=== PATIENT | female | born 1950 | race Caucasian/White ===

== ENCOUNTER 2025-04-22 06:28 | Day surgery (SDC) | payer MEDICARE, OTHER, SELFPAY ==
[2025-04-22] VITALS (14 sets, daily range): BP systolic 99–137; BP diastolic 56–70; BMI 32.0
[2025-04-22 07:20] LABS: Glucose - Point of Care 122 mg/dl (70-99)
--- NOTE | 2025-04-22 08:24 | ITS.CL.CATH ---
[facility] - Catheterization
Cardiac Catheterization
Procedure Report:
RIGHT AND LEFT HEART STUDY
Date of Procedure: April 22, 2025
Referring: Dr. Roland Shah
PROCEDURES:
1. Right heart catheterization
2. Left heart catheterization with coronary and single-plane left ventriculography
INDICATION: 75-year-old female with a past medical history of rheumatoid arthritis, hypertension, hyperlipidemia and recent worsening in LV function. She is referred for coronary angiography
ACCESS: Right common femoral artery and right common femoral vein with placement of 6 Yi sheath
HEMODYNAMICS : mmHg
RA (m) : 15
RV (s/d) : 50/11, 18
PA (s/d, m) : 42/23, 32
PCWP (m) : 28
AO (s/d) : 143/66, 97
LV (s/d) : 148/20
LVEDP : 30
Estimated Nan Cardiac Output: 5.2 L / min and Cardiac Index: 2.6 L/ min / m-2
Systemic Vascular Resistance: 15.8 Wood units = 1262 dynes*sec*cm-5
Pulmonary Vascular Resistance: 0.8 Wood units = 61.5 dynes*sec*cm-5
CORONARY FINDINGS :
Dominance: Right
LEFT MAIN: Short and unobstructed
LEFT ANTERIOR DESCENDING: The LAD arises normally from the left main and runs in the anterior interventricular groove. The LAD has a 30% stenosis beyond the only sizable diagonal branch. The remainder of the LAD has only minor luminal
irregularities and the distal vessel wraps completely around the apex supplying a significant portion of the inferior wall. The first diagonal branch arises from the proximal third of the LAD and is a medium caliber vessel. The second diagonal
branch arises from the mid LAD and is small-medium caliber vessel that is widely patent.
CIRCUMFLEX: The circumflex is a medium caliber nondominant vessel giving rise to 2 sizable obtuse marginal branches. OM1 arises from the mid circumflex and OM 2 arises at the AV continuation of the circumflex. OM 2 is larger than OM1 and is very
tortuous over its course but widely patent
RIGHT CORONARY ARTERY: The right coronary artery is a medium caliber dominant vessel arising from the anterior aorta. The right coronary artery is widely patent and supplies a small to medium caliber PDA which is widely patent
VENTRICULOGRAPHY: Left ventriculography is performed in an [place] projection. The digital single-plane left ventricular ejection fraction is visually estimated at 40-45%. Mitral annular calcification is noted. No significant mitral regurgitation.
The ventricle
RADIATION SUMMARY: Fluoro Time (min): 3.7, Dose (mGy): 342, DAP (Gy.cm2) : 28.9
CONCLUSIONS
1. Mildly elevated right and left ventricular filling pressures with normal cardiac output and cardiac index
2. Mild LV dysfunction with mild global hypokinesis and visually estimated ejection fraction of 40-45%
3. Nonobstructive coronary disease
RECOMMENDATIONS
1. Will discontinue hydrochlorothiazide in favor of furosemide as a loop diuretic
2. May consider SGLT2 in the future
3. Could consider oral beta-doreen, however, patient reports significant asthma and I am not sure if beta-blockers have been tried in the past or not. Dr. Shah will follow.
Copy to: Dr. Roland Shah
== END 2025-04-22 11:45 | disposition home or self-care (01) ==
LOC: CATH 06:28
PROVIDERS: ATTENDING PHYSICIAN Internal Medicine Interventional Cardiology; FAMILY PHYSICIAN Family Medicine; OTHER PHYSICIAN Internal Medicine Cardiovascular Disease
DX: I25.10 Atherosclerotic heart disease of native coronary artery without angina pectoris (principal); I34.81 Nonrheumatic mitral (valve) annulus calcification; E78.5 Hyperlipidemia, unspecified; I10 Essential (primary) hypertension; M06.9 Rheumatoid arthritis, unspecified; Z79.899 Other long term (current) drug therapy
CPT/HCPCS: 82962; 93460; C1760; C1894; Q9967